=== PATIENT | male | born 1980 | race Caucasian/White ===

== ENCOUNTER 2017-01-22 01:23 | Emergency (ER) | payer SELFPAY ==
[~2017-01-22] VITALS: Ht 177.8 cm; Wt 62.0 kg
[2017-01-22 01:25] VITALS: BP 151/77; PULSE 117; RESP 18; TEMP 98.8; O2SAT 97
--- NOTE | 2017-01-22 01:55 | PD ---
HPI Chief Complaint: Skin Problem Time Seen by Provider: 01:46 Travel History International Travel<30 days: No Contact w/Intl Traveler<30days: No Traveled to known affect area: No History of Present Illness HPI 36-year-old white male presents to emergency department complains of swelling and pain to his right lower mandible over last several days. He states that he had gone to [facility] but the hospitals close. He presents to the ER due to increasing pain and swelling of his face. Patient denies any fever chills. No difficulty swallowing. No shortness of breath or wheezing. Pain is moderate. PFSH Past Medical History Medical History: Denies Significant Hx Immunizations Current: Yes Tetanus Vaccination: > 5 Years Influenza Vaccination: No Past Surgical History Surgical History: No Previous Surgery Social History Alcohol Use: No Tobacco Use: Yes Substance Use: No Allergies-Medications (Allergen,Severity, Reaction): Coded Allergies: amoxicillin (Verified Allergy, Severe, Anaphylaxis, 01/22/17) Reported Meds & Prescriptions Reported Meds & Active Scripts Active Lortab (Hydrocodone-Acetaminophen) 5-325 Mg Tab 1 Tab PO Q6H PRN Cleocin (Clindamycin HCl) 150 Mg Cap 300 Mg PO Q6H 10 Days Review of Systems Except as stated in HPI: all other systems reviewed are Neg General / Constitutional: No: Fever, Chills Eyes: Positive: Drainage, Redness, No: Blurred Vision HENT: Positive: Dental Difficulties, No: Headaches, Sore Throat, Earache Cardiovascular: No: Chest Pain or Discomfort, Palpitations Respiratory: No: Cough, Shortness of Breath Gastrointestinal: No: Nausea, Vomiting Musculoskeletal: No: Myalgias, Arthralgias Skin: No Rash, No Itching Physical Exam Narrative GENERAL: Well-developed, well-nourished in no acute distress. Nontoxic appearing. HEAD: Normocephalic, patient has swelling to the right lower mandible. EYES: Pupils equal round and reactive. Extraocular motions intact. No scleral icterus. Bilateral injection with slight mucoid drainage. ENT: TMs clear without erythema. The external auditory canals clear. Nose: clear . Posterior pharynx is pink and moist. No tonsillar edema or exudate. Uvula midline. Airway patent. Patient has a large dental carry in the area of tooth #7. There is a large amount of swelling to the buccal mucosa. Tender to touch. NECK: Trachea midline.Supple, nontender, moves head freely. No central bony tenderness or spasm. CARDIOVASCULAR: Regular rate and rhythm without murmurs, gallops, or rubs. RESPIRATORY: Clear to auscultation. Breath sounds equal bilaterally. No wheezes , rales, or rhonchi. GASTROINTESTINAL: Abdomen soft, non-tender, nondistended. No hepato-splenomegaly , or palpable masses. No guarding. EXTREMITIES: No clubbing, cyanosis, or edema. No joint tenderness, effusion, or edema noted. BACK: Nontender without deformity or crepitance. No flank tenderness. Data Data Last Documented VS Vital Signs Date Time Temp Pulse Resp B/P (MAP) Pulse Ox O2 Delivery O2 Flow Rate FiO2 01/22/17 01:25 98.8 117 18 151/77 (101) 97 Room Air Orders Orders Iv Access Insert/Monitor (01/22/17 01:47) Clindamycin Inj (Cleocin Inj) (01/22/17 02:00) Lidocai-Epi 1%-1:100,000 Inj (Xylocaine- (01/22/17 02:00) Bupivacaine Pf 0.5% Inj (Marcaine Pf 0.5 (01/22/17 02:00) MDM Medical Decision Making Medical Screen Exam Complete: Yes Emergency Medical Condition: Yes Medical Record Reviewed: Yes Differential Diagnosis MDM: High Differential diagnoses: Abscess, folliculitis, cellulitis, lymphangitis, abrasion, contact dermatitis Narrative Course Patient has a large dental abscess with some developing facial cellulitis. IV access is obtained and the patient is given clindamycin 900 mg IV. An incision and drainage of the area has been performed. Procedures Procedure Narrative I&D abscess: After the risks and benefits were discussed the following procedure was performed. The skin is prepped and draped in the usual sterile fashion using Betadine. The abscess is anesthetized with 1% lidocaine with epinephrine and 0.5% Marcaine. After adequate anesthesia, an 11 blade scalpel is used to make a 1 centimeter central incision. Perulant material is expressed .The patient tolerated the procedure well. There was no complications. Follow-up instructions were given to the patient. Diagnosis Primary Impression: dental abscess with facial cellulitis Patient Instructions: General Instructions Additional Instructions: Rest. Saltwater gargles. Dawson oil on cotton balls. 3 Advil every 6 hours. Clindamycin and Lortab. follow-up with a dentist as soon as possible. And return to the ER if any problems. Med/Other Pt SpecificInfo: Prescription(s) given Scripts Hydrocodone-Acetaminophen (Lortab) 5-325 Mg Tab 1 TAB PO Q6H Y for PAIN, #12 TAB 0 Refills Prov: Shannan Ballesteros MD 01/22/17 Clindamycin (Cleocin) 150 Mg Cap 300 MG PO Q6H for Infection for 10 Days, CAP 0 Refills Prov: Shannan Ballesteros MD 01/22/17 Disposition: 01 DISCHARGE HOME Condition: Stable [place] Jan 22, 2017 01:55
[2017-01-22] MEDS ORDERED: HYDR-3533 PO (01:56)
[2017-01-22] MEDS ORDERED: CLIN150 PO (01:56)
[2017-01-22] MEDS ORDERED: BUPIVACAINE HCL PF 0.5% 30 ML VIAL INFIL ONE (02:00)
[2017-01-22] MEDS ORDERED: LIDOCAINE 1%/EPINEPHrine 1:100,000 SOLN 50 ML VIAL INFIL ONE (02:00)
[2017-01-22] MEDS ORDERED: CLINDAMYCIN INJ 900 MG in SODIUM CHLORIDE 0.9% INJ 100 ML IV ONE (02:00)
== END 2017-01-22 04:18 | disposition home or self-care (01) ==
LOC: NEPD 01:23
DX: K04.7 Periapical abscess without sinus (principal); L03.211 Cellulitis of face; Z72.0 Tobacco use
CPT/HCPCS: 40800; 96365